=== PATIENT | female | born 1935 | race Caucasian/White ===

== ENCOUNTER 2018-06-13 07:59 | Emergency (ER) | payer OTHER, MEDICAID ==
[~2018-06-13] VITALS: Ht 160 cm; Wt 68.0 kg
[2018-06-13 08:03] VITALS: Ht 160 cm; Wt 68.0 kg
[2018-06-13 08:30] LABS: BASOPHIL % 0.5 % (0-2); RED CELL DISTRIBUTION WIDTH 14.4 % (11.5-14.5)
[2018-06-13 08:39] LABS: CALCIUM 10.1 mg/dL (8.5-10.1); CARBON DIOXIDE 29.9 mmol/L (21-32); CHLORIDE SERUM 101 mmol/L (98-107); CREATININE SERUM 0.7 mg/dL (0.6-1.0); GLUCOSE SERUM 144 mg/dL (74-106); POTASSIUM SERUM 3.8 mmol/L (3.5-5.1); SODIUM SERUM 136 mmol/L (136-145)
[2018-06-13 08:44] LABS: ALKALINE PHOSPHATASE 84 U/L (46-116); ALT/SGPT 16 U/L (14-59); AST/SGOT 13 U/L (15-37); BILIRUBIN TOTAL 0.32 mg/dL (0.20-1.00)
[2018-06-13 09:01] LABS: ALBUMIN 2.8 g/dL (3.4-5.0); TOTAL PROTEIN, SERUM 8.3 g/dL (6.4-8.2)
[2018-06-13 09:02] LABS: PLATELET COUNT 417 x10^3mcL (130-400)
[2018-06-13 10:15] VITALS: BP 115/55
== END 2018-06-13 10:16 | disposition home or self-care (01) ==
LOC: ED 07:59
PROVIDERS: Emergency Medicine
DX: R07.89 Other chest pain (principal); R05 Cough; Z95.0 Presence of cardiac pacemaker; Z85.89 Personal history of malignant neoplasm of other organs and systems
CPT/HCPCS: 36415; J1885; Q0092

== ENCOUNTER 2018-06-16 13:49 | Emergency (ER) | payer OTHER, MEDICAID ==
[~2018-06-16] VITALS: Ht 160 cm; Wt 64.4 kg
[2018-06-16 14:56] LABS: BASOPHIL % 0.3 % (0-2); PLATELET COUNT 483 x10^3mcL (130-400); RED CELL DISTRIBUTION WIDTH 13.8 % (11.5-14.5)
[2018-06-16 15:14] LABS: CALCIUM 10.9 mg/dL (8.5-10.1); CARBON DIOXIDE 31.2 mmol/L (21-32); CHLORIDE SERUM 99 mmol/L (98-107); CREATININE SERUM 0.7 mg/dL (0.6-1.0); GLUCOSE SERUM 105 mg/dL (74-106); POTASSIUM SERUM 3.8 mmol/L (3.5-5.1); SODIUM SERUM 137 mmol/L (136-145)
[2018-06-16 15:19] LABS: ALKALINE PHOSPHATASE 88 U/L (46-116); ALT/SGPT 14 U/L (14-59); AST/SGOT 13 U/L (15-37); BILIRUBIN TOTAL 0.2 mg/dL (0.20-1.00)
[2018-06-16 15:22] LABS: ALBUMIN 2.9 g/dL (3.4-5.0); TOTAL PROTEIN, SERUM 8.9 g/dL (6.4-8.2)
[2018-06-16] MEDS ORDERED: ALBUTEROL0.63 MG/3 (17:05)
[2018-06-16] MEDS ORDERED: PRE20 PO (17:05)
[2018-06-16 18:39] VITALS: BP 118/57
== END 2018-06-16 18:47 | disposition short-term general hospital (02) ==
LOC: ED 13:49 → DU 16:53 → ED 16:53
PROVIDERS: Emergency Medicine
DX: J45.901 Unspecified asthma with (acute) exacerbation (principal)
CPT/HCPCS: 83880; J7512; J7613; J7644; Q0092

== ENCOUNTER 2019-01-21 23:49 | Emergency (ER) | payer OTHER ==
[~2019-01-21] VITALS: Ht 152.4 cm; Wt 54.4 kg
[~2019-01-21 23:49] MED LIST: ALBUTEROL0.63 MG/3; PRE20 PO
[2019-01-21 23:54] VITALS: Ht 152.4 cm; Wt 54.4 kg
[2019-01-22 04:32] VITALS: BP 122/68
== END 2019-01-22 04:32 | disposition home or self-care (01) ==
LOC: ED 23:49
DX: R11.2 Nausea with vomiting, unspecified (principal); G89.29 Other chronic pain; R10.13 Epigastric pain; D00.2 Carcinoma in situ of stomach; J45.909 Unspecified asthma, uncomplicated; Z95.0 Presence of cardiac pacemaker

== ENCOUNTER 2019-02-08 17:04 | Emergency (ER) | payer OTHER ==
[~2019-02-08] VITALS: Ht 157.5 cm; Wt 56.2 kg
[2019-02-08 17:14] VITALS: BP 106/54; Ht 157.5 cm; Wt 56.2 kg
[2019-02-08 18:40] LABS: CALCIUM 10.7 mg/dL (8.5-10.1); CARBON DIOXIDE 32.4 mmol/L (21-32); CHLORIDE SERUM 98 mmol/L (98-107); CREATININE SERUM 0.6 mg/dL (0.6-1.0); GLUCOSE SERUM 76 mg/dL (74-106); POTASSIUM SERUM 4.1 mmol/L (3.5-5.1); SODIUM SERUM 138 mmol/L (136-145)
[2019-02-08 18:41] LABS: PLATELET COUNT 519 x10^3mcL (130-400); RED CELL DISTRIBUTION WIDTH 17.5 % (11.5-14.5)
[2019-02-08 18:52] LABS: ALKALINE PHOSPHATASE 157 U/L (46-116); ALT/SGPT 109 U/L (14-59); AST/SGOT 190 U/L (15-37); BILIRUBIN TOTAL 0.2 mg/dL (0.20-1.00); LIPASE 86 IU/L (73-393)
[2019-02-08 18:53] LABS: ALBUMIN 2.2 g/dL (3.4-5.0)
[2019-02-08 18:56] LABS: BAND NEUTROPHIL 5 % (0-10); BASOPHIL 0 % (0-2); MONOCYTE 1 % (0-7); SEGMENTED NEUTROPHILS 86 % (37-75)
[2019-02-08 18:59] LABS: rbc morphology (normal/abnorm) ABNORMAL (NORMAL)
== END 2019-02-08 19:24 | disposition home or self-care (01) ==
LOC: ED 17:04
DX: Z53.21 Procedure and treatment not carried out due to patient leaving prior to being seen by health care provider (principal)